=== PATIENT | female | born 1995 | race Two or more races ===

== ENCOUNTER 2016-12-28 01:40 | Emergency (ER) | payer SELFPAY ==
[2016-12-28 02:26] LABS: BILIRUBIN,URINE NEGATIVE (NEG); GLUCOSE,URINE NEGATIVE (NEG); NITRITE,URINE NEGATIVE (NEG); PROTEIN,URINE NEGATIVE (NEG-TRACE); UROBILINOGEN,URINE 0.2 mg/dL (0.2 mg/dL)
[2016-12-28 02:33] LABS: BACTERIA,URINE FEW /HPF (0-FEW); RBC,URINE TNTC /HPF (0-2); SQUAMOUS EPITHELIAL CELL,UR MOD /LPF
[2016-12-28 03:11] LABS: BASO # 0.1 x10^3/uL (0.0-0.2); BASO % 0 % (0-3); EOS % 1 % (0-3); HEMATOCRIT 43.1 % (36.0-47.0); HEMOGLOBIN 13.9 g/dL (12.0-15.5); LYMPH # 1.6 x10^3/uL (1.0-4.8); LYMPH % 12 % (24-48); MEAN CORPUSCULAR HEMOGLOBIN 26 pg (25-35); MEAN CORPUSCULAR HGB CONC 32 g/dL (31-37); MEAN CORPUSCULAR VOLUME 79 fL (79-100); MONO % 7 % (0-9); NEUT % 80 % (31-73); PLATELET COUNT 188 x10^3/uL (140-400); RED BLOOD COUNT 5.44 x10^6/uL (3.50-5.40); RED CELL DISTRIBUTION WIDTH 14.8 % (11.5-14.5); WHITE BLOOD COUNT 13.2 x10^3/uL (4.0-11.0)
[2016-12-28 03:22] LABS: CALCIUM 9.3 mg/dL (8.5-10.1); CREATININE 0.8 mg/dL (0.6-1.0); GFR 88.9
[2016-12-28 03:35] LABS: ALBUMIN 4.1 g/dL (3.4-5.0); TOTAL BILIRUBIN 0.5 mg/dL (0.2-1.0); TOTAL PROTEIN 8.2 g/dL (6.4-8.2)
[2016-12-28] MEDS ORDERED: KETOROLAC 15 MG/ML VIAL. IV ONE (04:15)
[2016-12-28] MEDS ORDERED: IV NORMAL SALINE 1000ML BAG 1,000 ML IV ONE (04:15)
[2016-12-28] MEDS ORDERED: ONDANSETRON PF 4 MG/2 ML VIAL. IV ONE (04:15)
[2016-12-28 04:58] VITALS: BP 116/65
--- NOTE | 2016-12-28 05:36 | RAD ---
Abdominal ultrasound right upper quadrant: Reason for examination: Right upper quadrant abdominal pain. No abnormality seen at the pancreas. Gallbladder shows cholelithiasis but the gallbladder wall is not thickened and there is no pericholecystic fluid present. Common bile duct is normal at 5.3 mm. The liver is normal in size and homogeneous in echogenicity without a focal lesion no abnormality seen at the inferior vena cava. The right kidney measures 10.4 x 4.1 x 6.2 cm in greatest dimension and shows no mass or hydronephrosis. IMPRESSION: Cholelithiasis but no evidence of cholecystitis. Electronically signed by: Mariza Guerra MD (12/28/2016 5:33 AM) [facility]
[2016-12-28] MEDS ORDERED: HYOS0.1265 SL (05:54)
[2016-12-28] MEDS ORDERED: ONDA4TAB10 SL (05:54)
--- NOTE | 2016-12-28 05:54 | PHYS DOC ---
Past Medical History Past Medical History: No Pertinent History Past Surgical History: Appendectomy, Alcohol Use: None Drug Use: None Adult General Chief Complaint Chief Complaint: ABDOMINAL PAIN HPI HPI Patient is a 21 year old female who presents here today complaining of right upper quadrant pain is gone on for approximately 1 day. Patient has any fevers shakes chills nausea vomiting diarrhea. Patient has a dysuria frequency or urgency. Patient reports her last by mouth intake was last night. Patient has no history of hypertension diabetes liver longer kidney problems. Patient does not smoke or drink. Patient is allergic to anything. Patient is status post C- section 2 months ago and a appendectomy. Patient's physical exam is significant for tenderness to palpation in the midepigastric and right upper quadrant. Patient has no rebound or guarding. No psoas or obturator signs. No Marcelino sign. No tenderness at McBurney's point. Patient's labs in the ED were all unremarkable except for some mildly elevated LFTs. Patient's ultrasound revealed gallstones however no evidence of cholecystitis. Constitutional: Denies fever or chills [] Eyes: Denies change in visual acuity, redness, or eye pain [] All other review systems are negative except as documented in the history of present illness portion. Constitutional: Well developed, well nourished, no acute distress, non-toxic appearance. [] HENT: Normocephalic, atraumatic, bilateral external ears normal, oropharynx moist, no oral exudates, nose normal. [] Eyes: PERRLA, EOMI, conjunctiva normal, no discharge. [] Neck: Normal range of motion, no tenderness, supple, no stridor. [] Cardiovascular:Heart rate regular rhythm, Lungs & Thorax: Bilateral breath sounds clear to auscultation [] Abdomen: Bowel sounds normal, soft, no tenderness, no masses, no pulsatile masses. [] Skin: Warm, dry, no erythema, no rash. [] Back: No tenderness, no CVA tenderness. [] Extremities: No tenderness, no cyanosis, no clubbing, ROM intact, no edema. [] Neurologic: Alert and oriented X 3, normal motor function, normal sensory function, no focal deficits noted. [] Psychologic: Affect normal, judgement normal, mood normal. [] Assessment and plan: This is a 21-year-old female who presents here today complaining of right upper quadrant pain. Patient's exam is consistent with likely cholelithiasis. Patient's ultrasound was consistent with cholelithiasis without any evidence of cholecystitis. Patient is being given pain medicines and hydration ED and feels much improved. Patient be discharged home with Levsin and Zofran to assist her with her discomfort. Patient was instructed to follow-up with her primary care physician for further outpatient evaluation of her cholelithiasis. Current Medications Current Medications Current Medications Medications (Trade) Dose Ordered Sig/Tai Start Time Stop Time Status Last Admin Dose Admin Ketorolac Tromethamine (Toradol) 15 mg 1X ONCE 12/28/16 04:15 12/28/16 04:16 DC 12/28/16 04:24 15 MG Ondansetron HCl (Zofran) 4 mg 1X ONCE 12/28/16 04:15 12/28/16 04:16 DC 12/28/16 04:24 4 MG Sodium Chloride 1,000 ml @ 1,000 mls/hr 1X ONCE 12/28/16 04:15 12/28/16 05:14 DC 12/28/16 04:25 1,000 MLS/HR Allergies Allergies Allergies Coded Allergies Type Severity Reaction Last Updated Verified No Known Drug Allergies 12/28/16 No Current Patient Data Vital Signs Vital Signs Date Time Temp Pulse Resp B/P (MAP) Pulse Ox O2 Delivery O2 Flow Rate FiO2 12/28/16 04:58 68 18 116/65 (82) 100 Room Air 12/28/16 01:55 98.4 98.4 Lab Values Laboratory Tests Test 12/28/16 01:19 12/28/16 01:50 12/28/16 02:50 POC Urine HCG, Qualitative Hcg negative (Negative) Urine Collection Type Unknown Urine Color Yellow Urine Clarity Clear Urine pH 7.0 Urine Specific Hospers 1.025 Urine Protein Negative mg/dL (NEG-TRACE) Urine Glucose (UA) Negative mg/dL (NEG) Urine Ketones (Stick) Negative mg/dL (NEG) Urine Blood Large (NEG) Urine Nitrite Negative (NEG) Urine Bilirubin Negative (NEG) Urine Urobilinogen Dipstick 0.2 mg/dL (0.2 mg/dL) Urine Leukocyte Esterase Small (NEG) Urine RBC Tntc /HPF (0-2) Urine WBC 1-4 /HPF (0-4) Urine Squamous Epithelial Cells Mod /LPF Urine Bacteria Few /HPF (0-FEW) Urine Mucus Mod /LPF White Blood Count 13.2 x10^3/uL (4.0-11.0) H Red Blood Count 5.44 x10^6/uL (3.50-5.40) H Hemoglobin 13.9 g/dL (12.0-15.5) Hematocrit 43.1 % (36.0-47.0) Mean Corpuscular Volume 79 fL (79-100) Mean Corpuscular Hemoglobin 26 pg (25-35) Mean Corpuscular Hemoglobin Concent 32 g/dL (31-37) Red Cell Distribution Width 14.8 % (11.5-14.5) H Platelet Count 188 x10^3/uL (140-400) Neutrophils (%) (Auto) 80 % (31-73) H Lymphocytes (%) (Auto) 12 % (24-48) L Monocytes (%) (Auto) 7 % (0-9) Eosinophils (%) (Auto) 1 % (0-3) Basophils (%) (Auto) 0 % (0-3) Neutrophils # (Auto) 10.6 x10^3uL (1.8-7.7) H Lymphocytes # (Auto) 1.6 x10^3/uL (1.0-4.8) Monocytes # (Auto) 0.9 x10^3/uL (0.0-1.1) Eosinophils # (Auto) 0.1 x10^3/uL (0.0-0.7) Basophils # (Auto) 0.1 x10^3/uL (0.0-0.2) Sodium Level 139 mmol/L (136-145) Potassium Level 4.0 mmol/L (3.5-5.1) Chloride Level 103 mmol/L (98-107) Carbon Dioxide Level 28 mmol/L (21-32) Anion Gap 8 (6-14) Blood Urea Nitrogen 15 mg/dL (7-20) Creatinine 0.8 mg/dL (0.6-1.0) Estimated GFR (Cockcroft-Gault) 88.9 BUN/Creatinine Ratio 19 (6-20) Glucose Level 112 mg/dL (70-99) H Calcium Level 9.3 mg/dL (8.5-10.1) Total Bilirubin 0.5 mg/dL (0.2-1.0) Aspartate Amino Transferase (AST) 120 U/L (15-37) H Alanine Aminotransferase (ALT) 96 U/L (14-59) H Alkaline Phosphatase 158 U/L (46-116) H Total Protein 8.2 g/dL (6.4-8.2) Albumin 4.1 g/dL (3.4-5.0) Albumin/Globulin Ratio 1.0 (1.0-1.7) Lipase 179 U/L (73-393) Laboratory Tests 12/28/16 02:50 Laboratory Tests 12/28/16 02:50 EKG EKG [] Radiology/Procedures Radiology/Procedures [] Course & Med Decision Making Course & Med Decision Making Pertinent Labs and Imaging studies reviewed. (See chart for details) [] Dragon Disclaimer Dragon Disclaimer This electronic medical record was generated, in whole or in part, using a voice recognition dictation system. Departure Departure Impression: Primary Impression: Abdominal pain Additional Impression: Cholelithiasis Disposition: HOME, SELF-CARE Condition: IMPROVED Referrals: NO PCP (PCP) Patient Instructions: Biliary Colic Scripts Ondansetron (ZOFRAN ODT) 4 Mg Tab.rapdis 1 TAB SL Q6HRS Y for NAUSEA, #12 TAB Prov: HENRY GONSALVES MD 12/28/16 Hyoscyamine Sulfate (LEVSIN-SL) 0.125 Mg Tab.subl 0.125 MG SL Q6-8HRS Y for abdominal cramps, #10 Prov: HENRY GONSALVES MD 12/28/16 Problem Qualifiers HENRY GONSALVES MD Dec 28, 2016 05:54
== END 2016-12-28 06:14 | disposition home or self-care (01) ==
LOC: ER 01:40
DX: K80.20 Calculus of gallbladder without cholecystitis without obstruction (principal); Z90.49 Acquired absence of other specified parts of digestive tract
CPT/HCPCS: 36415; 76705; 80053; 81001; 81025; 83690; 85027; 87086; 96361; 96374; 96375; 99285; J1885; J2405; J7030